=== PATIENT | female | born 1955 | race Caucasian/White ===

== ENCOUNTER → 2023-11-08 09:25 | Outpatient (REF) | payer MEDICARE, OTHER, SELFPAY | LOC: RAD 09:25 | PROVIDERS: ATTENDING PHYSICIAN Physician Assistant | DX: R10.32 Left lower quadrant pain (principal); K59.00 Constipation, unspecified; R11.0 Nausea | CPT/HCPCS: 74177; Q9967 ==

== ENCOUNTER → 2024-01-21 12:30 | Outpatient (REF) | payer MEDICARE, OTHER, SELFPAY | LOC: RAD 12:30 | PROVIDERS: ATTENDING PHYSICIAN Physician Assistant; FAMILY PHYSICIAN Family Medicine | DX: I73.9 Peripheral vascular disease, unspecified (principal) | CPT/HCPCS: 93922; 93925 ==

== ENCOUNTER → 2024-03-04 06:26 | Outpatient (REF) | payer MEDICARE, OTHER, SELFPAY ==
[2024-03-04] MEDS: LEXISCAN 0.4 MG IV (09:33)
[2024-03-04] MEDS: FLUSH (NSS) 1 FLUSH IV (09:34)
== END ==
LOC: RCS 06:26
PROVIDERS: ATTENDING PHYSICIAN Internal Medicine Cardiovascular Disease; FAMILY PHYSICIAN Family Medicine
DX: Z01.810 Encounter for preprocedural cardiovascular examination (principal); I73.9 Peripheral vascular disease, unspecified
CPT/HCPCS: 78452; 93017; A9500; J2785

== ENCOUNTER 2024-03-11 10:28 | Inpatient (IN) | payer MEDICARE, OTHER, SELFPAY ==
[2024-03-06 09:11] VITALS: BMI 27.7
[2024-03-06 09:42] LABS: % Basophils 0.8 % (0-2); % Eosinophils 2.9 % (0-6); % Immature Granulocytes 0.3 % (0-0.5); % Lymphocytes 27.9 % (20.5-51.1); % Monocytes 5.7 % (1.7-9.3); % Neutrophils 62.4 % (42.2-75.2); Absolute Basophils 0.1 10^3/uL (0-0.2); Absolute Eosinophils 0.2 10^3/uL (0-0.7); Absolute Lymphocytes 2.1 10^3/uL (1.2-3.4); Absolute Monocytes 0.4 10^3/uL (0.1-0.6); Absolute Neutrophils 4.6 10^3/uL (1.4-6.5); Hematocrit 42.7 % (37.0-47.0); Hemoglobin 14.7 g/dL (12.0-16.0); Mean Corp Hgb Conc. 34.4 g/dL (33.0-37.0); Mean Corpuscular Hgb 34.2 pg (27.0-31.0); Mean Corpuscular Volume 99.3 fL (81.0-99.0); Mean Platelet Volume 9.1 fL (7.4-10.4); Nucleated Red Blood Cells % 0 %; Platelet Count 256 10^3/uL (130-400); Red Cell Dist. Width 13.2 % (11.5-14.5); White Blood Cell Count 7.4 10^3/uL (4.8-10.8)
[2024-03-06 09:56] LABS: Blood Urea Nitrogen 14 mg/dl (7-17); Calcium 9.8 mg/dl (8.4-10.2); Carbon Dioxide 26 mmol/L (22-30); Chloride 103 mmol/L (98-107); Estimated Creatinine Clearance 94 ml/min; Glucose 110 mg/dl (70-99); Potassium 5.2 mmol/L (3.5-5.1); Sodium 140 mmol/L (135-145); eGFR > 60.00
[2024-03-06 10:08] LABS: APTT 27.1 Sec (23.4-35.0)
[2024-03-11] VITALS (11 sets, daily range): BP systolic 119–156; BP diastolic 64–137
--- NOTE | 2024-03-11 13:18 | W.SUR.PREOP ---
Pre-Operative Surgical Note
-
I have examined this patient prior to the performance of the scheduled procedure.
The patient's condition is unchanged from the time of the current History and
Physical and the patient is able to undergo the scheduled procedure.
--- NOTE | 2024-03-11 17:01 | W.SUR.POST ---
Surgical Immediate Post Op
Note
Pre Op Diagnosis: PAD
Post Op Diagnosis: PAD
Procedure Performed: Fem-fem bypass with ringed Propaten graft
Primary Surgeon: Sky
Assist: Reginaldo CORBETT
Anesthesia: general
Estimated Blood Loss: 25cc
Fluids: See anesthesia flow sheet
Drains/Shunts: None
Specimens/Cultures: None
Doppler/Duplex/Angio (Y/N): Y
Complications: none
Operative Findings: Palp DP pulses BL
[2024-03-11 17:24] LABS: Hemoglobin 12.6 g/dL (12.0-16.0); Mean Corpuscular Hgb 33.1 pg (27.0-31.0); Mean Corpuscular Volume 94.5 fL (81.0-99.0); Mean Platelet Volume 9.1 fL (7.4-10.4); Platelet Count 208 10^3/uL (130-400); Red Blood Cell Count 3.81 10^6/uL (4.20-5.40); Red Cell Dist. Width 13.1 % (11.5-14.5); White Blood Cell Count 11.2 10^3/uL (4.8-10.8)
[2024-03-11] MEDS: DILAUDID 0.5 MG IV (17:24)
[2024-03-11 18:05] LABS: Blood Urea Nitrogen 13 mg/dl (7-17); Calcium 8.8 mg/dl (8.4-10.2); Carbon Dioxide 17 mmol/L (22-30); Chloride 109 mmol/L (98-107); Estimated Creatinine Clearance 94 ml/min; Glucose 143 mg/dl (70-99); Potassium 4.5 mmol/L (3.5-5.1); Sodium 138 mmol/L (135-145); eGFR > 60.00
--- NOTE | 2024-03-11 18:35 | PTCARENOTE ---
Pt rec'd from PACU into ICU room 3365 at 18:35. Neurovascular and site checks completed with REFINED SYRUP OPERATOR. Pt reports relief from pain at rest s/p Dilaudid administration in PACU. Pt is AOx3, GUZMAN...slightly anxious but cooperative with care. Right radial
A-line zeroed and correlates w/in 20 mmHg of non invasive cuff. SR on tele with HR in 70s. 98% on 2L, 16 fr. Vital placed in OR draining clear yellow urine, IVF infusing as ordered. Handoff completed to oncoming shift, pt's at bedside. Plan
of care discussed, pt verbalized agreement.
[2024-03-11] MEDS: NSS 1000 IV (19:24)
[2024-03-11] MEDS: ROXICODONE 5 MG PO (19:24)
--- NOTE | 2024-03-11 20:00 | PTCARENOTE ---
Patient received in bed, AAOX3, GUZMAN. NSR on monitor, blood pressure as documented. no edema noted. Lungs clear, pulse ox 98% on 2L. Abdomen soft with positive bowel sounds. Vital catheter draining yellow urine. Bilateral groin dressings clean,
dry and intact, tender to palpation. Bilateral DPs are palpable. Right radial Anita transduced. #18 g in LAC, #20 g in LFA both flushed and patent. Call lindquist within reach
[2024-03-11] MEDS: HEPARIN 5000 UNITS SC (20:02)
[2024-03-12] VITALS (8 sets, daily range): BP systolic 105–143; BP diastolic 40–106
--- NOTE | 2024-03-12 00:12 | PTCARENOTE ---
Patient reassessed, resting comfortably. Bilateral DPs palpable. No changes in assessmnet
--- NOTE | 2024-03-12 03:39 | PTCARENOTE ---
Patient reassessed, bilateral groin dressings intact, bilateral DPs palpable. patient offers no complaints
[2024-03-12 04:57] LABS: Hematocrit 32.1 % (37.0-47.0); Hemoglobin 11.5 g/dL (12.0-16.0); Mean Corp Hgb Conc. 35.8 g/dL (33.0-37.0); Mean Corpuscular Hgb 33.5 pg (27.0-31.0); Mean Corpuscular Volume 93.6 fL (81.0-99.0); Mean Platelet Volume 9.4 fL (7.4-10.4); Platelet Count 200 10^3/uL (130-400); Red Blood Cell Count 3.43 10^6/uL (4.20-5.40); Red Cell Dist. Width 13.2 % (11.5-14.5); White Blood Cell Count 9.7 10^3/uL (4.8-10.8)
[2024-03-12 05:15] LABS: INR 1.12; PT 14.9 Sec (11.4-14.6)
[2024-03-12 05:16] LABS: APTT 30.3 Sec (23.4-35.0)
[2024-03-12 05:27] LABS: Blood Urea Nitrogen 12 mg/dl (7-17); Calcium 8.5 mg/dl (8.4-10.2); Carbon Dioxide 20 mmol/L (22-30); Chloride 108 mmol/L (98-107); Estimated Creatinine Clearance 94 ml/min; Glucose 127 mg/dl (70-99); Magnesium 1.7 mg/dl (1.6-2.3); Phosphorus 4.2 mg/dl (2.5-4.5); Sodium 138 mmol/L (135-145); eGFR > 60.00
[2024-03-12] MEDS: SYNTHROID 137 MCG PO (06:05)
[2024-03-12] MEDS: NSS 1000 IV (06:05)
--- NOTE | 2024-03-12 07:23 | PTCARENOTE ---
Reviewed the plan of care at the bedside with Dr. Swanson. Pt informed of OOB to the chair, remove arterial line, and D/C IVF. He is aware of tenderness of her left upper lateral thigh and left groin. Scant shadowing noted on left groin dressing,
marked. Good palpable peripheral pulses. No edema. 2 liters nasal cannula, 98% pulse ox, oxygen removed. Moist non-productive cough. +BSx4. Safe environment maintained.
--- NOTE | 2024-03-12 07:51 | W.PN.VS ---
Addendum entered and electronically signed by Manav wSanson MD 03/12/24 09:11:
Seen and examined with CHAINSTITCH SEWING MACHINE OPERATOR's. Agree with findings as noted below. Patient without significant complaints (just some tenderness at the incision sites). Abdomen is soft, nondistended, nontender. Groin dressing is clean dry and intact. Groins are
flat bilaterally. No hematoma. Feet are both warm and well-perfused with excellent 2+ DP pulses bilaterally. Plan/as discussed and noted below.
Original Note:
Today's Communication / Plan
-
Seen and assessed with Dr. Swanson
Assessment/Plan
-
POD 1 fem-fem bypass with Propaten graft
Plan:
-DC A-line
-DC IV fluids
-DC Vital
-Out of bed to chair
-Plan for increased ambulation/PT tomorrow
-Regular diet
-P.o. medications
-Telemetry to 2N/2S later today
Subjective Data
-
Date of Service: March 12, 2024
Patient seen at bedside this a.m. with Dr. Swanson. Patient has mild discomfort to the left groin. More so with palpation. No events overnight no other complaints at this time.
Objective Data
-
Vital Signs
Temp Pulse Resp BP Pulse Ox
98.1 F 58 10 156/83 98
03/12/24 03:15 03/12/24 03:30 03/12/24 03:30 03/11/24 19:00 03/12/24 03:30
Intake and Output
03/11/24 03/12/24 03/13/24
06:59 06:59 06:59
Intake Total 1360 / 1440 80 / 80
Output Total 870 / 870
Balance 490 / 570 80 / 80
Intake:
IV fluids (Total) 1360 / 1440 80 / 80
NSS 400 / 400
Nss 1,000 ml @ 80 mls/hr IV . 960 / 1040 80 / 80
[id number] ILEANA Rx#:[id number]
Output:
Urine, Vital 870 / 870
Lab Results
03/12/24 04:34
03/12/24 04:34
Calcium 8.5 mg/dl (8.4-10.2) 03/12/24 04:34
Phosphorus 4.2 mg/dl (2.5-4.5) 03/12/24 04:34
Magnesium 1.7 mg/dl (1.6-2.3) 03/12/24 04:34
Physical Exam
-
AAOx3
No tachypnea on 2 L nasal cannula
No tachycardia
Abdomen soft
Bilateral groin site dressings clean, dry, intact, flat, no drainage noted
Bilateral feet warm with bounding palpable DP pulses
[2024-03-12] MEDS: ASPIR LOW (ENTERIC COATED) 81 MG PO (08:08)
[2024-03-12] MEDS: ZINC 50 MG PO (08:09)
[2024-03-12] MEDS: ZESTRIL 20 MG PO (08:09)
[2024-03-12] MEDS: VISBIOME 1 CAP PO (08:09)
[2024-03-12] MEDS: MAG-TAB SR 84 MG PO (08:09)
[2024-03-12] MEDS: CRESTOR 10 MG PO (08:09)
[2024-03-12] MEDS: VITAMIN C 1000 MG PO (08:10)
[2024-03-12] MEDS: VITAMIN D3 (cholecalciferol) 25 MCG PO (08:10)
[2024-03-12] MEDS: ROXICODONE 5 MG PO ×2 (08:13→14:11)
[2024-03-12] MEDS: HEPARIN 5000 UNITS SC ×2 (08:14→21:24)
--- NOTE | 2024-03-12 09:04 | OR.RPT ---
Operative Report
Operative Report
PROCEDURE DATE: 03/11/2024
Preoperative diagnosis: Severe debilitating left lower extremity claudication, and chronic ischemic symptoms left lower extremity.
Postoperative diagnosis: Same
Procedure:
1. Right to left femoral to femoral artery bypass with 8 mm ringed [place] Propaten graft.
2. Aortogram and pelvic angiogram.
Surgeon: Sky
Sciences Dean: BIENVENIDO Hair, required for all aspects of procedure including assistance with traction/countertraction, following a suture line, assistance with closure.
Complications: None
Anesthesia: General
Indications for procedure:
Patient had had subacute event of left leg pain/numbness/severe claudication at the time of the prior surgery couple years ago. Significantly worsening over time. She felt debilitated. Workup demonstrated possible arterial insufficiency in the
left lower extremity. I reviewed her CT scan that demonstrated a left iliac occlusion chronically. She possibly had some right iliac stenosis, certainly had some plaque in that distribution. Therefore discussed with her revascularization with
femoral to femoral artery bypass and possible angiography of the aorta/iliacs and possible angioplasty/stenting if needed. Risk/benefit/alternatives all fully discussed. Patient understood all wished to proceed.
Description of procedure:
Patient was identified brought to the operating room placed on the table in supine position. After the adequate administration of anesthesia she was prepped and draped in the standard surgical fashion. A standard preoperative timeout was
undertaken and everybody was in agreement the plan. A oblique/transverse incision was made in the right groin that was carried through the skin subcutaneous tissue. Dissected down with the electrocautery through the Hector's fascia layer and then
down to the level of the femoral sheath. Any lymphatic or venous crossing structures during the dissection were ligated between silk ties and then divided. The common femoral artery was identified as the emerged from underneath the inguinal
ligament. I carefully circumferentially dissected the common femoral artery and passed a vessel loop around it which was double looped but not yet tightened. I then continued dissection to the femoral bifurcation. I dissected the SFA about a
centimeter to beyond the origin and carefully circumferentially dissected and passed a vessel loop around it which was double looped but not yet tightened. I then dissected back to the origin of the profunda. Careful dissection was undertaken and
circumferential dissection around the profunda was performed and vessel loop was passed around it which was double looped but not yet tightened. Of note the arteries were relatively soft throughout all these distributions.
Next a very similar incision was undertaken in the left groin (oblique/transverse). Similar dissection was undertaken. Similar exposure of the common femoral and femoral bifurcation was undertaken. Similarly noted soft vessels. However they were
nonpulsatile in this groin, they were pulsatile in the right groin. Vesseloops passed around them which were double looped but not yet tightened (around the common femoral, SFA, origin of the profunda). Given bilaterally no significant profunda
origin disease based on CT imaging, and based on the soft nature of the vessels there, I did not do extensive dissection of the profunda. I now created a deep subcutaneous tunnel just anterior to the abdominal wall between the 2 incision sites and
a slight bit of a U fashion. I then passed an 8 mm [place] ringed Propaten graft through the tunnel. I gave the patient an appropriate dose of heparin. I now tightened my Vesseloops on the common femoral/profunda/SFA on the right side. Longitudinal
arteriotomy was made on the distal common femoral holding onto the SFA with a 11 blade and a Anderson scissor. The graft was beveled and an end-to-side anastomosis was fashioned using a running [place] CV 6 suture. Prior to completing and tied in my
suture I backbled and forward bled the ute artery. I then completed and tied down my suture line. I then placed a graft clamp on the graft and released flow in the ute system. Anastomosis was fully hemostatic. Excellent pulsatile flow was
noted in the ute vessels of the right groin.
At this point I turned my attention to the left groin. The graft was relieved of any redundancy. I then tightened my Vesseloops on the common femoral/profunda/SFA on this side. Similar arteriotomy was made with an 11 blade of the distal common
femoral artery and extended putting over the profunda onto the SFA with a Anderson scissor. The graft was then shortened, the rings were then removed, and the graft was beveled. An end-to-side anastomosis between the graft and the femoral artery was
then fashioned using a running [place] CV 6 suture. Prior to completing and tying down my suture line I backbled each of the ute artery branches, and then I flushed out the graft by temporarily flushing my graft clamp. Heparinized saline was
irrigated. I then completed and tied down my suture line. Next I released flow in the left sided artery system and released my graft clamp. Excellent pulsatile flow was noted now in the left profunda and superficial femoral arteries. Doppler
confirmed excellent signals in both femoral artery systems (bilaterally). At this point is very satisfied. Hemostasis was noted in the left groin as well.
I now turned my attention to the right groin again. Of the villagomez of the bypass graft was punctured with a micropuncture kit under direct visualization. A micropuncture sheath was then advanced into the iliac artery system. I then performed
aortography/pelvic angiography. While there was calcified plaque throughout the iliac system and the distal infrarenal aorta, there was no significant stenosis noted on angiography. A couple images were performed and none demonstrate any
significant inflow stenosis. This coupled with the fact that there was good pulsatile flow in the groin, led me to the conclusion that there was not a high-grade inflow stenosis and that the patient did not require inflow stenting. Therefore I
temporarily clamped the right femoral vessels and removed the sheath. Two [place] CV 6 [id number] sutures were placed at the sheath entry site. Clamps were removed. Hemostasis was again noted. We gave protamine to reverse the heparin. We
irrigated both groin sites. Confirmed full hemostasis. Then closed in layers using 2 layers of 2-0 Vicryl followed by running 3-0 Vicryl deep dermal layer followed by 4-0 Monocryl subcuticular running stitch. Dermabond was applied. This was done
in both groins. The patient tolerated the procedure well. Upon completion she had 2+ palpable DP pulses bilaterally.
--- NOTE | 2024-03-12 10:57 | CON.INTV ---
Consultation
Consultation Request
Date/Time Consultation Requested: 03/12/2024
Date/Time Consultation Performed: 03/12/2024
Requesting Provider: Dr. Swanson
Performing Provider: Dr. Trino Saavedra
Reason for Consultation: Status post femorofemoral bypass-postop ICU care
Medical History
-
History of Present Illness:
68-year-old woman with past medical history for symptomatic peripheral vascular disease. With exercise intolerance, evaluated by Dr. Swanson in the outpatient setting and she was deemed candidate for revascularization.
Admitted to the hospital 03/11/2024. Underwent femoral-femoral bypass without complications. Currently in the critical care unit for hemodynamic monitoring.
Overnight patient did well.
She states that her pain is improved.
Denies shortness of breath, palpitations or lightheadedness.
Denies nausea or vomiting.
Tolerating diet this morning.
Incisions are intact without hematoma
Outpatient records reviewed
Past Medical History
Past Medical History: Other (See assessment and plan)
Social History
Tobacco: Former Smoker (Quit longer than 10 years)
Alcohol: None
Drug: None
Family History
Family History: Reviewed & Not Pertinent
Allergies / Home Medications
Allergies
Allergy/AdvReac Type Severity Reaction Status Date / Time
No Known Allergies Allergy Verified 03/03/24 15:42
Home Medications
�Medication �Instructions �Recorded �Confirmed �Last Taken �Type
Lactobacillus acidophilus 10 10,000 mmu cells PO DAILY 01/11/22 03/11/24 03/10/24 04:00 History
billion cell capsule (Probiotic) Supplement
ascorbic acid (vitamin C) 1,000 mg 1,000 mg PO DAILY Supplement 01/11/22 03/11/24 03/10/24 04:00 History
tablet
cholecalciferol (vitamin D3) 25 25 mcg PO DAILY Supplement 01/11/22 03/11/24 03/10/24 04:00 History
mcg (1,000 unit) tablet
lisinopril 10 mg tablet 20 mg PO DAILY Blood pressure 01/11/22 03/11/24 03/10/24 04:00 History
zinc gluconate 50 mg tablet 50 mg PO DAILY Supplement 01/11/22 03/11/24 03/10/24 04:00 History
vitamin E 268 mg (400 unit) capsule 1 cap PO DAILY 03/27/22 03/11/24 03/10/24 04:00 History
aspirin 81 mg capsule 81 mg PO DAILY 03/03/24 03/11/24 03/11/24 04:00 History
levothyroxine 137 mcg tablet 137 mcg PO DAILY 03/03/24 03/11/24 03/11/24 04:00 History
magnesium 200 mg tablet 400 mg PO DAILY 03/03/24 03/11/24 03/10/24 04:00 History
rosuvastatin 10 mg tablet 10 mg PO DAILY 03/03/24 03/11/24 03/10/24 18:00 History
Review of Systems
-
History Source: Patient
All other systems: Negative unless noted
Vitals / Labs / Diagnostic Testing
Vital Signs
Temp Pulse Resp BP Pulse Ox
97.9 F 73 10 148/57 98
03/12/24 07:52 03/12/24 08:09 03/12/24 03:30 03/12/24 08:09 03/12/24 07:51
Lab Data
03/12/24 04:34
03/12/24 04:34
Laboratory Results
03/12/24
04:34
PT 14.9 H
INR 1.12
APTT 30.3
Diagnostic Testing:
Physical Exam
-
HEENT: Normocephalic
Cardiovascular: S1/S2
Respiratory: Clear and Non-Labored Respirations
GI: Soft and Non Distended
Neurology: Awake, Alert and Oriented
Skin: Warm and Other (Distal pulses present. Warm lower extremities bilaterally)
General: Comfortable
Assessment
-
Status post Fem-fem bypass with ringed Propaten graft 03/11/2024-Dr. Swanson
Conditions present prior admission:
Hypothyroidism
Hypertension
Hyperlipidemia
Prior appendectomy
Prior cholecystectomy
Distant history of asthma
Assessment and plan:
Postoperative day 1
Overnight, hemodynamically and neurologically stable.
Incisions are intact without hematoma.
Continue postoperative care.
Arterial line to be discontinued
Vital to be discontinued next increase activity as able
Diet as tolerated
Mild anemia noted. Likely postoperative blood loss.
Follow H&H
Renal function normal
Electrolytes are back
Blood glucose acceptable
Restart outpatient medications
DVT prophylaxis
Since patient did well overnight. Clinically improved. Transferred to telemetry.
Critical care team will sign off.
--- NOTE | 2024-03-12 11:08 | CM ---
CM following re: discharge planning.
Reviewed pt's chart, met with pt.
Pt is a 68 year old female, admitted with primary dx of POD 1 fem-fem bypass with Propaten graft.
Pt reports she lives with in a split level house with 4 levels and 5 steps to get to each level. Pt reports she has no children. Pt reports she ambulates with a cane, has been experienced difficulties to get around the house and to take
steps due to a weakness on her leg.
PT and OT will evaluate the pt to determine a level of care at discharge.
PCP: [facility]
Pharmacy: [facility]
D/C plan: most likely home with VN services. Awaiting for PT/OT recommendations.
CM will follow with discharger plan updates as hospitalization progresses
--- NOTE | 2024-03-12 11:52 | PTCARENOTE ---
No changes. OOB to the chair. SHe stated her left foot like it was getting numb, she was repositioned in the chair with the legs lowered with resolution.
--- NOTE | 2024-03-12 16:20 | TRANSFER ---
report called to gretchen MENG for room 2106. Pt to be transferred via W/C and tele
[2024-03-12] MEDS: VITAMIN E PO (16:22)
[2024-03-12] MEDS: DILAUDID 0.5 MG IV ×2 (16:29→21:29)
--- NOTE | 2024-03-12 16:50 | PTCARENOTE ---
Pt received from the ICU via wheelchair. Transport was w/o incident. Pt is AAOx3, HRR, lungs are clear. abd soft, denies nausea. Pt with 1 antibacterial dressing to left groin, and 1 antibacterial dressing to the right groin. Scant old drainage
noted. No new current bleeding noted. Pt's b/l DP pulses are strong and both feet are warm. Pt denies pain at present, pt had received pain med prior to transfer from ICU. Pt instructed on plan of care. Pt verbalized understanding of instructions.
Call lindquist is within reach.
[2024-03-13] VITALS: BP 112/67
[2024-03-13 03:36] VITALS: BP 112/58
[2024-03-13] MEDS: SYNTHROID 137 MCG PO (05:50)
[2024-03-13 06:54] VITALS: BP 128/60
[2024-03-13 07:23] LABS: Hematocrit 33.8 % (37.0-47.0); Hemoglobin 11.8 g/dL (12.0-16.0); Mean Corp Hgb Conc. 34.9 g/dL (33.0-37.0); Mean Corpuscular Hgb 34.2 pg (27.0-31.0); Platelet Count 171 10^3/uL (130-400); Red Blood Cell Count 3.45 10^6/uL (4.20-5.40); Red Cell Dist. Width 12.9 % (11.5-14.5); White Blood Cell Count 9.2 10^3/uL (4.8-10.8)
[2024-03-13 07:36] LABS: Blood Urea Nitrogen 9 mg/dl (7-17); Calcium 8.9 mg/dl (8.4-10.2); Carbon Dioxide 27 mmol/L (22-30); Chloride 102 mmol/L (98-107); Estimated Creatinine Clearance 94 ml/min; Glucose 112 mg/dl (70-99); Potassium 4.5 mmol/L (3.5-5.1); Sodium 136 mmol/L (135-145); eGFR > 60.00
--- NOTE | 2024-03-13 08:08 | W.PN.VS ---
Addendum entered and electronically signed by Manav Swanson MD 03/13/24 10:15:
Seen and examined with BIENVENIDO Ram. Agree with findings as noted below. Patient without significant complaints except sensitivity at incision sites. Unchanged. Otherwise no foot complaints. She ambulated slightly yesterday with no claudication. On
exam/abdomen is soft, nondistended, nontender. Groins are flat bilaterally. Mild sensitivity around incision sites. Dressings clean dry and intact. No hematoma. Feet are both warm. Palpable 2+ DP pulses bilaterally. Plan/as discussed and
noted below.
Original Note:
Today's Communication / Plan
-
Patient seen and examined at bedside with Dr. Manav Swanson, below plan reviewed with attending.
Assessment/Plan
-
POD 2 fem-fem bypass with Propaten graft
Plan:
-PT today with increased ambulation
-Continue regular diet
-P.o. medications
-Encourage incentive spirometry
-Possible discharge later this afternoon pending physical therapy recommendations and if patient's postoperative pain continues to be managed
Subjective Data
-
Date of Service: March 13, 2024
Patient seen and examined at bedside, does report continued sensitivity and pain to bilateral groin sites, left worse than right, but well-managed with postoperative pain medication. Also, endorses that she tolerated getting out of bed to chair and
small amounts of ambulation in the room yesterday.
Objective Data
-
Vital Signs
Temp Pulse Resp BP Pulse Ox
99.8 F 88 15 128/60 95
03/13/24 06:54 03/13/24 06:54 03/13/24 06:54 03/13/24 06:54 03/13/24 06:54
Intake and Output
03/12/24 03/13/24 03/14/24
06:59 06:59 06:59
Intake Total 1360 / 1440 1440 / 1440
Output Total 870 / 870 275 / 275
Balance 490 / 570 1165 / 1165
Intake:
Oral fluids 1200 / 1200
IV fluids (Total) 1360 / 1440 240 / 240
NSS 400 / 400
Nss 1,000 ml @ 80 mls/hr IV . 960 / 1040 240 / 240
[id number] ILEANA Rx#:[id number]
Output:
Urine, Vital 870 / 87 275 / 275
Other:
Number of approximated MODERATE 2
amounts of urine
Lab Results
03/13/24 07:12
03/13/24 07:12
Calcium 8.9 mg/dl (8.4-10.2) 03/13/24 07:12
Phosphorus 4.2 mg/dl (2.5-4.5) 03/12/24 04:34
Magnesium 1.7 mg/dl (1.6-2.3) 03/12/24 04:34
Physical Exam
-
AAOx3
No tachypnea on room air
No tachycardia
Abdomen soft
Bilateral groin site dressings clean, dry, intact, flat, no drainage noted
Bilateral feet warm with bounding palpable DP pulses
[2024-03-13 10:17] VITALS: PULSE 87; O2SAT 95
[2024-03-13] MEDS: ZINC 50 MG PO (10:33)
[2024-03-13] MEDS: VITAMIN C 1000 MG PO (10:33)
[2024-03-13] MEDS: CRESTOR 10 MG PO (10:33)
[2024-03-13] MEDS: ZESTRIL 20 MG PO (10:33)
[2024-03-13] MEDS: MAG-TAB SR 84 MG PO (10:33)
[2024-03-13] MEDS: VITAMIN D3 (cholecalciferol) 25 MCG PO (10:33)
[2024-03-13] MEDS: ASPIR LOW (ENTERIC COATED) 81 MG PO (10:33)
[2024-03-13] MEDS: VISBIOME 1 CAP PO (10:33)
[2024-03-13] MEDS: VITAMIN E 400 UNITS PO (10:33)
[2024-03-13] MEDS: HEPARIN 5000 UNITS SC (10:34)
[2024-03-13 11:14] VITALS: BP 143/74
--- NOTE | 2024-03-13 12:12 | CM ---
Addendum entered by Sahra Wiggins 03/13/24 15:33:
Plan: Discharge to home today; Outpatient Therapy and a Rolling Walker recommended by PT
Spoke with patient's who will provide transport home
Original Note:
Chart reviewed: PT recommended a Rolling Walker and Outpatient PT post acute care
Attending notified via tiger text to write scripts for both. PT can provide RW at discharge
--- NOTE | 2024-03-13 15:11 | W.[place]-PDMP ---
[place]-PD[place]
-
Checked the [place]- Prescription Drug Monitoring Program website, no red flags identified; safe to proceed with prescription.
--- NOTE | 2024-03-13 15:14 | W.DS.TRANS ---
DC Summary - Commercial Maintenance Technician
-
Discharge Instructions:
Discharge Diagnosis/Procedures Right to left femoral to femoral artery bypass
with 8 mm ringed [place] Propaten graft. Aortogram
and pelvic angiogram.
Diet As tolerated
Activity No strenuous activity
Driving Restrictions Not until seen by your Dr
Bathing Restrictions OK to Shower
Other Services PT
Instructions:
Stand-Alone Forms: DC Instr - Vascular OR
Changes to Home Medications: Yes
Discharge Medications:
DC Medications w/original date entered in [email or web address]
Lactobacillus acidophilus 10 billion cell capsule (Probiotic) 10,000 mmu cells PO DAILY Supplement 01/11/22
ascorbic acid (vitamin C) 1,000 mg tablet 1,000 mg PO DAILY Supplement 01/11/22
cholecalciferol (vitamin D3) 25 mcg (1,000 unit) tablet 25 mcg PO DAILY Supplement 01/11/22
lisinopril 10 mg tablet 20 mg PO DAILY Blood pressure 01/11/22
zinc gluconate 50 mg tablet 50 mg PO DAILY Supplement 01/11/22
vitamin E 268 mg (400 unit) capsule 1 cap PO DAILY Supplement 03/27/22
aspirin 81 mg capsule 81 mg PO DAILY Blood Clot Prevention/Tx 03/03/24
levothyroxine 137 mcg tablet 137 mcg PO DAILY Thyroid 03/03/24
magnesium 200 mg tablet 400 mg PO DAILY Electrolyte Repletion 03/03/24
rosuvastatin 10 mg tablet 10 mg PO DAILY High Cholesterol 03/03/24
oxycodone 5 mg tablet 5 mg PO Q4HPRN PRN moderate pain #12 tabs 03/13/24
Home Medication Changes
Added:
oxycodone 5 mg tablet 5 mg PO Q4HPRN PRN moderate pain #12 tabs 03/13/24
Pending Results: No
[2024-03-13 15:15] VITALS: BP 121/60
--- NOTE | 2024-03-16 15:39 | PN.CDI ---
CDI
- -
CDI:
Physician Documentation Request
Admit Date: 03/11/24 10:28
Dear Hilary Ram,
Please review the following and provide your response in the progress notes.
Clinical Indicators:
The diagnosis of likely postoperative blood loss was documented on 03/12/24, but is not consistently noted in subsequent documentation.
Pt admitted for fem-fem bypass with Propaten graft.
03/12 Esol Instructor note: 'Mild anemia noted. Likely postoperative blood loss...Follow H&H'
Laboratory Tests
03/06/24 03/11/24 03/12/24
09:26 17:13 04:34
Hgb 14.7 12.6 11.5 L
Please clarify the following:
Postoperative blood loss is still a likely, suspected, probable diagnosis
Postoperative blood loss was ruled out
Other
Use of terms such as suspected, likely, concern for, or probable (associated with a specific diagnosis that is being evaluated, monitored, or treated as if it exists) are acceptable and can be coded in the inpatient setting, when documented at the
time of discharge.
Thank you,
Ariana Encarnacion RN, BSN
CDI Specialist
Available via [employer]
Please use your independent medical judgment in providing your response.
--- NOTE | 2024-03-16 16:24 | W.PN.UPDATE ---
Update Note
Progress Note Update
In response to CDI:
Pt admitted for fem-fem bypass with Propaten graft.
03/12 Senior Linux Engineer note: 'Mild anemia noted. Likely postoperative blood loss...Follow H&H'
Laboratory Tests
03/06/24 03/11/24 03/12/24
09:26 17:13 04:34
Hgb 14.7 12.6 11.5 L
Please clarify the following:
Postoperative blood loss is still a likely, suspected, probable diagnosis in conjunction with hemodilution, monitored with repeat CBC and hemodynamically stable vital signs.
== END 2024-03-13 16:00 | disposition home or self-care (01) | DRG 253 ==
LOC: 2 SOUTH 10:28
PROVIDERS: Nurse Practitioner; ADMITTING PHYSICIAN Surgery Vascular Surgery; CONSULT PHYSICIAN Internal Medicine Critical Care Medicine; FAMILY PHYSICIAN Family Medicine
PROC: 041K0JJ Bypass Right Femoral Artery to Left Femoral Artery with Synthetic Substitute, Open Approach (ICD-10-PCS; 2024-03-11)
DX: I70.212 Atherosclerosis of native arteries of extremities with intermittent claudication, left leg (principal); D62 Acute posthemorrhagic anemia; I10 Essential (primary) hypertension; E03.9 Hypothyroidism, unspecified; J45.909 Unspecified asthma, uncomplicated; E78.5 Hyperlipidemia, unspecified; Z79.82 Long term (current) use of aspirin; Z79.890 Hormone replacement therapy; Z90.49 Acquired absence of other specified parts of digestive tract; Z90.89 Acquired absence of other organs; Z79.899 Other long term (current) drug therapy; Z87.891 Personal history of nicotine dependence
CPT/HCPCS: 35661; 36140; 36415; 71045; 71046; 75630; 80048; 83735; 84100; 85025; 85027; 85610; 85730; 86850; 86900; 86901; 93005; 97116; 97163; C1769; C1894; Q9967

== ENCOUNTER → 2024-04-21 10:05 | Outpatient (REF) | payer MEDICARE, OTHER, SELFPAY | LOC: RAD 10:05 | PROVIDERS: ATTENDING PHYSICIAN Physician Assistant; FAMILY PHYSICIAN Family Medicine; OTHER PHYSICIAN Surgery Vascular Surgery | DX: I73.9 Peripheral vascular disease, unspecified (principal) | CPT/HCPCS: 93922; 93925 ==

== ENCOUNTER → 2024-07-08 15:14 | Outpatient (REF) | payer MEDICARE, OTHER, SELFPAY ==
[2024-07-08 15:39] LABS: % Basophils 0.6 % (0-2); % Immature Granulocytes 0.4 % (0-0.5); % Lymphocytes 28.7 % (20.5-51.1); % Monocytes 9.9 % (1.7-9.3); % Neutrophils 59.4 % (42.2-75.2); Absolute Eosinophils 0.1 10^3/uL (0-0.7); Absolute Lymphocytes 1.5 10^3/uL (1.2-3.4); Absolute Monocytes 0.5 10^3/uL (0.1-0.6); Absolute Neutrophils 3.1 10^3/uL (1.4-6.5); Hematocrit 45.4 % (37.0-47.0); Hemoglobin 15.2 g/dL (12.0-16.0); Mean Corp Hgb Conc. 33.5 g/dL (33.0-37.0); Mean Corpuscular Hgb 31.9 pg (27.0-31.0); Mean Corpuscular Volume 95.2 fL (81.0-99.0); Nucleated Red Blood Cells % 0 %; Platelet Count 236 10^3/uL (130-400); Red Blood Cell Count 4.77 10^6/uL (4.20-5.40); Red Cell Dist. Width 13.2 % (11.5-14.5); White Blood Cell Count 5.2 10^3/uL (4.8-10.8)
[2024-07-08 15:55] LABS: ALT (SGPT) 52 U/L (0-35); AST (SGOT) 67 U/L (14-36); Albumin 4.3 g/dl (3.5-5.0); Alkaline Phosphatase 85 U/L (38-126); Blood Urea Nitrogen 19 mg/dl (7-17); Carbon Dioxide 21 mmol/L (22-30); Chloride 103 mmol/L (98-107); Glucose 103 mg/dl (70-99); Potassium 4.9 mmol/L (3.5-5.1); Sodium 136 mmol/L (135-145); Total Bilirubin 1.1 mg/dl (0.2-1.3); Total Protein 7.2 g/dl (6.3-8.2); eGFR > 60.00
[2024-07-08 16:04] LABS: Troponin I < 0.012 ng/ml
== END ==
LOC: RAD 15:14
PROVIDERS: ATTENDING PHYSICIAN Physician Assistant
DX: R06.02 Shortness of breath (principal); R11.0 Nausea; R19.7 Diarrhea, unspecified
CPT/HCPCS: 36415; 71046; 80053; 84484; 85025

== ENCOUNTER → 2024-10-27 07:27 | Outpatient (REF) | payer MEDICARE, OTHER, SELFPAY | LOC: RAD 07:27 | PROVIDERS: ATTENDING PHYSICIAN Surgery Vascular Surgery | DX: I73.9 Peripheral vascular disease, unspecified (principal) | CPT/HCPCS: 93922; 93925 ==

== ENCOUNTER → 2024-11-11 06:27 | Outpatient (REF) | payer MEDICARE, OTHER, SELFPAY ==
[2024-11-11 08:08] LABS: Blood Urea Nitrogen 18 mg/dl (7-17); Calcium 9.7 mg/dl (8.4-10.2); Carbon Dioxide 25 mmol/L (22-30); Chloride 108 mmol/L (98-107); Glucose 109 mg/dl (70-99); Potassium 4.6 mmol/L (3.5-5.1); Sodium 139 mmol/L (135-145); eGFR > 60.00
== END ==
LOC: REG 06:27
PROVIDERS: ATTENDING PHYSICIAN Registered Nurse; FAMILY PHYSICIAN Family Medicine
DX: I73.9 Peripheral vascular disease, unspecified (principal)
CPT/HCPCS: 36415; 80048

== ENCOUNTER → 2024-11-16 12:48 | Outpatient (REF) | payer MEDICARE, OTHER, SELFPAY | LOC: RAD 12:48 | PROVIDERS: ATTENDING PHYSICIAN Registered Nurse; FAMILY PHYSICIAN Family Medicine; OTHER PHYSICIAN Orthopaedic Surgery | DX: I73.9 Peripheral vascular disease, unspecified (principal); M25.531 Pain in right wrist; M67.431 Ganglion, right wrist | CPT/HCPCS: 75635; 76882; Q9967 ==

== ENCOUNTER → 2024-12-04 06:32 | Outpatient (REF) | payer MEDICARE, OTHER, SELFPAY ==
[2024-12-04 07:03] LABS: Hematocrit 41.2 % (37.0-47.0); Hemoglobin 13.8 g/dL (12.0-16.0); Mean Corp Hgb Conc. 33.5 g/dL (33.0-37.0); Mean Corpuscular Volume 96.9 fL (81.0-99.0); Nucleated Red Blood Cells % 0 %; Platelet Count 225 10^3/uL (130-400); Red Cell Dist. Width 13.2 % (11.5-14.5)
[2024-12-04 07:34] LABS: Blood Urea Nitrogen 19 mg/dl (7-17); Calcium 9.8 mg/dl (8.4-10.2); Carbon Dioxide 27 mmol/L (22-30); Chloride 107 mmol/L (98-107); Glucose 122 mg/dl (70-99); Potassium 5.1 mmol/L (3.5-5.1); Sodium 139 mmol/L (135-145); eGFR > 60.00
== END ==
LOC: RCS 06:32
PROVIDERS: ATTENDING PHYSICIAN Orthopaedic Surgery; FAMILY PHYSICIAN Family Medicine
DX: Z01.818 Encounter for other preprocedural examination (principal)
CPT/HCPCS: 36415; 80048; 85025; 93005

== ENCOUNTER → 2025-01-25 11:45 | Outpatient (REF) | payer MEDICARE, OTHER, SELFPAY ==
[2025-01-25 15:08] LABS: ALT (SGPT) 26 U/L (0-35); AST (SGOT) 30 U/L (14-36); Albumin 4.5 g/dl (3.5-5.0); Alkaline Phosphatase 91 U/L (38-126); Calcium 9.6 mg/dl (8.4-10.2); Carbon Dioxide 29 mmol/L (22-30); Chloride 104 mmol/L (98-107); Glucose 124 mg/dl (70-99); HDL Cholesterol 87 mg/dl; LDL Cholesterol, Calculated 65 mg/dl; Potassium 4.8 mmol/L (3.5-5.1); Sodium 139 mmol/L (135-145); Total Protein 7.0 g/dl (6.3-8.2); Very Low Density Lipoprotein 18 mg/dl (0-30)
[2025-01-25 15:09] LABS: eGFR > 60.00
[2025-01-25 15:16] LABS: Blood Urea Nitrogen 24 mg/dl (7-17)
== END ==
LOC: REG 11:45
PROVIDERS: ATTENDING PHYSICIAN Physician Assistant
DX: I70.203 Unspecified atherosclerosis of native arteries of extremities, bilateral legs (principal); E03.9 Hypothyroidism, unspecified
CPT/HCPCS: 36415; 80053; 80061; 84439; 84443

== ENCOUNTER → 2025-02-18 10:19 | Outpatient (REF) | payer MEDICARE, OTHER, SELFPAY | LOC: RAD 10:19 | PROVIDERS: ATTENDING PHYSICIAN Family Medicine; FAMILY PHYSICIAN Physician Assistant | DX: R06.2 Wheezing (principal); R06.02 Shortness of breath; R05.1 Acute cough | CPT/HCPCS: 71046 ==